=== PATIENT | female | born 1945 | race Two or more races ===

== ENCOUNTER 2019-02-17 12:39 | Outpatient (CLI) | payer BC ==
[2019-02-17] MEDS ORDERED: FENOFIBRATE43 MG ORAL (15:57)
[2019-02-17] MEDS ORDERED: ZETIA10 MG ORAL (15:57)
[2019-02-17] MEDS ORDERED: PROTONIX40 MG ORAL (15:57)
--- NOTE | 2019-02-17 16:15 | Consultation ---
DATE OF CONSULTATION: 02/17/2019 CONSULTING PHYSICIAN: Slava Kan M.D. REASON FOR CONSULTATION: Chronic GERD. HISTORY OF PRESENT ILLNESS: This is a pleasant 73-year-old female with past medical history of severe hiatal hernia requiring surgery in 2009 for three years and then started having symptoms again. She is on chronic Nexium, now switched to Protonix. She still having a lot of acid reflux to the point she is getting cough and had an evaluation by primary care physician for chronic cough, which was negative. So, she was concerned that she is having severe acid reflux causing her cough. PAST MEDICAL HISTORY: 1. Colonic AVM, causing bleeding, status post treatment. 2. Hemorrhoids. 3. Hypertriglyceridemia. 4. GERD. 5. Hiatal hernia, status post surgery. 6. Fatty liver. PAST SURGICAL HISTORY: Hernia repair, right knee surgery, hysterectomy, multiple breast lumpectomies. MEDICATIONS: Protonix, fenofibrate, and Zetia. FAMILY HISTORY: No family history of GI malignancies. SOCIAL HISTORY: The patient denies any tobacco, alcohol, or drug abuse. ALLERGIES: To penicillin. REVIEW OF SYSTEMS: A 10-point review of systems was performed and pertinent positives in HPI. PHYSICAL EXAMINATION: GENERAL: The patient is a well-developed female, in no acute distress. HEENT: Normocephalic and atraumatic. Sclerae anicteric. NECK: Supple. No evidence of lymphadenopathy. CARDIOVASCULAR: Regular rate and rhythm. Plus S1 and S2. No obvious murmur. LUNGS: Decreased breath sounds bilaterally based on the supine. ABDOMEN: Soft. Minimal tenderness to palpation in the epigastric area. No rebound. No guarding. No peritoneal sign. EXTREMITIES: No cyanosis. No clubbing. No edema. ASSESSMENT AND PLAN: This is a 73-year-old female with severe chronic GERD, status post hernia repair in 2009. Plan to increase the Protonix twice a day, add baclofen 10 mg at bedtime. The patient is scheduled to get an endoscopy this week. colonoscopy according to the patient, she had three years ago. We do not have the report. The patient also to be very poor so we cannot determine when should be her next colonoscopy scheduled. Slava Lina Kan DR: DELORES JOB#: [id number] CC:
== END 2019-02-17 14:39 | disposition home or self-care (01) ==
LOC: PAN 12:39
DX: K21.9 Gastro-esophageal reflux disease without esophagitis (principal); Z79.899 Other long term (current) drug therapy; Z90.710 Acquired absence of both cervix and uterus

== ENCOUNTER 2019-02-19 07:34 | Day surgery (SDC) | payer BC ==
[2019-02-19] VITALS (9 sets, daily range): BP systolic 105–117; BP diastolic 56–61
[~2019-02-19] VITALS: Ht 157.5 cm; Wt 63.5 kg
[~2019-02-19 07:34] MED LIST: FENOFIBRATE43 MG ORAL; LR 1000ml 1,000 ML IVLG SCH; PROTONIX40 MG ORAL; ZETIA10 MG ORAL
[2019-02-19] MEDS ORDERED: LR 1000ml ONE (09:00)
[2019-02-19] MEDS ORDERED: Lidocaine 1% MPF 10mg/ml 5ml ONE (09:00)
[2019-02-19] MEDS ORDERED: Propofol 200mg/20ml IV ONE (09:00)
--- NOTE | 2019-02-19 09:03 | Pre-Procedure Note/Attestation ---
Pre-Procedure Note/Attestation Complete Prior to Procedure Planned Procedure: not applicable Procedure Narrative: egd Indications for Procedure Pre-Operative Diagnosis: GERD Attestation I attest that I discussed the nature of the procedure; its benefits; risks and complications; and alternatives (and the risks and benefits of such alternatives ), prior to the procedure, with the patient (or the patient's legal sales representative sales manager). I attest that, if there was a reasonable possibility of needing a blood transfusion, the patient (or the patient's legal sales representative sales manager) was given the [facility] standardized written summary, pursuant to the [place] Blood Safety Act ([place] Health and Safety Code # 1645, as amended). I attest that I re-evaluated the patient just prior to the surgery and that there has been no change in the patient's H&P, except as documented below: Slava Kan MD Feb 19, 2019 09:03
--- NOTE | 2019-02-19 09:04 | Short Stay Surgery H&P ---
History of Present Illness History of Present Illness Chief Complaint see recent consult note HPI Shena Molina is a 73 year old female who was admitted on for GERD Patient History Allergies: Coded Allergies: PENICILLINS (Verified Allergy, Severe, RASH , 02/19/19) LATEX (Verified Allergy, Intermediate, REDNESS, ITCHING , 02/19/19) Medication History Scheduled Ezetimibe (Zetia*), 10 MG ORAL BEDTIME, (Reported) Fenofibrate,Micronized (Fenofibrate), Unknown Dose ORAL DAILY, (Reported) Pantoprazole* (Protonix*), 40 MG ORAL DAILY, (Reported) Physical Exam Vital Signs Last Vital Signs Date Time Temp Pulse Resp B/P (MAP) Pulse Ox O2 Delivery O2 Flow Rate FiO2 02/19/19 08:21 Room Air 02/19/19 08:08 97.8 66 18 105/61 99 Plan Attestation Are the patient's medical conditions optimized for surgery? Slava Kan MD Feb 19, 2019 09:04
--- NOTE | 2019-02-19 09:10 | Anethesia Preoperative Eval ---
Anesthesia Pre-op PMH/ROS General Date of Evaluation: Feb 19, 2019 Time of Evaluation: 08:50 ASA Score: ASA 2 Mallampati Score Class I : Soft palate, uvula, fauces, pillars visible Class II: Soft palate, uvula, fauces visible Class III: Soft palate, base of uvula visible Class IV: Only hard plate visible Mallampati Classification: Class II Anesthesia History: none Family History: no anesthesia problems Allergies: Coded Allergies: PENICILLINS (Verified Allergy, Severe, RASH , 02/19/19) LATEX (Verified Allergy, Intermediate, REDNESS, ITCHING , 02/19/19) Medications: see eMAR Patient NPO?: Yes NPO Date: Feb 19, 2019 NPO Time: 00:00 Past Medical History Cardiovascular: Reports: other - Hypercholesterolemia; Denies: HTN, CAD, PA, valve dz, arrhythmia Pulmonary: Denies: asthma, COPD, JERMAINE, other Gastrointestinal/Genitourinary: Reports: GERD; Denies: CRI, ESRD, other Neurologic/Psychiatric: Denies: dementia, CVA, depression/anxiety, TIA, other Endocrine: Denies: DM, hypothyroidism, steroids, other HEENT: Denies: cataract (L), cataract (R), glaucoma, [place] (L), [place] (R), other Hematology/Immune: Reports: anemia; Denies: DVT, bleeding disorder, other Musculoskeletal/Integumentary: Reports: OA; Denies: RA, DJD, DDD, edema, other PMH Narrative: as noted above PSxH Narrative: tonsillectomy, septoplasty, gastric bypass, hernia repair; knee arthroscopy x2. breast lumpectomy, hysterectomy Anesthesia Pre-op Phys. Exam Physician Exam Last Vital Signs Date Time Temp Pulse Resp B/P (MAP) Pulse Ox O2 Delivery O2 Flow Rate FiO2 02/19/19 08:21 Room Air 02/19/19 08:08 97.8 66 18 105/61 99 Constitutional: NAD Neurologic: other - alert & oriented Cardiovascular: RRR Respiratory: CTA Gastrointestinal: S/NT/ND Airway Exam Mallampati Score: Class II Neck: FROM TMD: > 3 FB ROM: full Teeth: intact Dentures: no upper, no lower Anesthesia Pre-op A/P Studies Pre-op Studies: EKG - NSR Risk Assessment & Plan Assessment: ASA 2, ok to proceed Plan: MAC Status Change Before Surgery: No Pre-Antibiotics Given Within 1 Hr of Incision: No Hayley Boyle CRNA Feb 19, 2019 09:10
--- NOTE | 2019-02-19 09:11 | Endoscopy Procedure Note ---
Endoscopy Procedure Note General Indication for Procedure: gerd Procedures Performed: EGD Operative Findings/Diagnosis: gastritis Specimen: yes Pt Tolerated Procedure Well: Yes Estimated Blood Loss: none Anesthesia Anesthesiologist: chayo Anesthesia: MAC Inserted Devices Implant(s) used?: No GI Core Measures 50 yrs or older w/o bx or poly: Not Applicable 10yrs. F/U recommended: Not Applicable Slava Kan MD Feb 19, 2019 09:11
--- NOTE | 2019-02-19 09:13 | Immediate Post-Op Evaluation ---
Immediate Post-Op Evalulation Immediate Post-Op Evalulation Procedure: EGD with biopsy Date of Evaluation: Feb 19, 2019 Time of Evaluation: 09:22 IV Fluids: LR 200 ml Blood Pressure Systolic: 111 Blood Pressure Diastolic: 61 Pulse Rate: 72 Respiratory Rate: 20 O2 Sat by Pulse Oximetry: 100 Temperature (Fahrenheit): 97.2 Pain Score (1-10): 0 Nausea: No Vomiting: No Complications none Patient Status: reacts, patent Hydration Status: adequate Given Within 1 Hr of Incision: Hayley Mustafa CRNA Feb 19, 2019 09:13
--- NOTE | 2019-02-19 11:15 | Procedure Note ---
DATE OF PROCEDURE: 02/19/2019 SURGEON: Slava Kan M.D. PROCEDURE: Upper endoscopy with biopsy. ANESTHESIA: Per Hayley HICKMAN. INSTRUMENT: Olympus adult flexible upper endoscope. INDICATION: Chronic GERD. REASON FOR PROCEDURE: The procedure, risks, benefits, and possible consequences, including hemorrhage, aspiration, perforation and infection, and alternative treatments, were explained to the patient/legal guardian by Dr. Slava Kan and the patient/legal guardian understood and accepted these risks. PROCEDURE IN DETAIL: After informed consent was obtained and the patient was adequately sedated, Olympus upper endoscope was advanced from mouth into the esophagus. GE junction was found to be about 30 cm from the incisors. The patient has a history of gastric bypass. The gastric pouch measured about 5 cm from 30 to 35 cm. When we reached the anastomosis, we entered one of the limbs of the small intestine. There is no acute finding. There is no anastomotic ulceration. There is no bleeding. There is minimum gastritis from the gastric pouch which was biopsied. The patient tolerated the procedure very well without complication. SUMMARY OF FINDINGS: 1. 5 centimeter gastric pouch. History of gastric bypass surgery. 2. No anastomotic ulceration. 3. Gastritis, status biopsy. RECOMMENDATIONS: Follow up biopsy results and treat accordingly. Slava Kan M.D. DR: SUNIL JOB#: [id number] CC:
--- NOTE | 2019-02-19 12:07 | 48 Hour Post Anesthesia Eval ---
Post Anesthesia Evaluation Procedure: EGD with biopsy Date of Evaluation: Feb 19, 2019 Time of Evaluation: 12:06 Blood Pressure Systolic: 114 0: 56 Pulse Rate: 61 Respiratory Rate: 12 Temperature (Fahrenheit): 97.4 O2 Sat by Pulse Oximetry: 100 Airway: patent Nausea: No Vomiting: No Pain Intensity: 0 Hydration Status: adequate Cardiopulmonary Status: stable Mental Status/LOC: patient returned to baseline Follow-up Care/Observations: per GI Post-Anesthesia Complications: none Follow-up care needed: N/A Hayley Boyle CRNA Feb 19, 2019 12:07
== END 2019-02-19 10:35 | disposition home or self-care (01) ==
LOC: GAS 07:34
DX: K21.9 Gastro-esophageal reflux disease without esophagitis (principal); Z98.84 Bariatric surgery status; Z88.0 Allergy status to penicillin; Z91.040 Latex allergy status; Z79.899 Other long term (current) drug therapy; E78.00 Pure hypercholesterolemia, unspecified; M19.90 Unspecified osteoarthritis, unspecified site; K29.50 Unspecified chronic gastritis without bleeding
CPT/HCPCS: 43239; 93005; J2704; 94003; 94150

== ENCOUNTER → 2019-03-16 | Outpatient (CLI) | payer BC ==
[~2019-03-16] MED LIST changes: +BACLOFEN10 MG ORAL; -LR 1000ml 1,000 ML IVLG SCH
--- NOTE | 2019-03-16 11:47 | General Progress Note ---
Assessment/Plan Assessment/Plan: 1. Colonic AVM, causing bleeding, status post treatment. 2. Hemorrhoids. 3. Hypertriglyceridemia. 4. GERD. 5. Hiatal hernia, status post surgery. 6. Fatty liver. EGD reviewed with the patient off ppi due to rash off baclofen due to dizziness patient was told to fu with pmd for surg referral Subjective ROS Limited/Unobtainable: Yes Allergies: Coded Allergies: PENICILLINS (Verified Allergy, Severe, RASH , 02/19/19) LATEX (Verified Allergy, Intermediate, REDNESS, ITCHING , 02/19/19) Objective General Appearance: alert EENT: normal ENT inspection Neck: supple Cardiovascular: normal rate Respiratory/Chest: lungs clear Abdomen: normal bowel sounds, non tender, soft Extremities: non-tender Slava Kan MD Mar 16, 2019 11:47
[2019-03-16 13:32] VITALS: BP 125/78
== END | disposition home or self-care (01) ==
LOC: PAN 09:30
DX: K55.21 Angiodysplasia of colon with hemorrhage (principal); K64.9 Unspecified hemorrhoids; E78.1 Pure hyperglyceridemia; K21.9 Gastro-esophageal reflux disease without esophagitis; K44.9 Diaphragmatic hernia without obstruction or gangrene; K76.0 Fatty (change of) liver, not elsewhere classified; Z88.0 Allergy status to penicillin; Z91.040 Latex allergy status
CPT/HCPCS: 99212

== ENCOUNTER 2019-04-19 14:30 | Outpatient (CLI) | payer BC ==
--- NOTE | 2019-04-19 15:17 | General Progress Note ---
Assessment/Plan Assessment/Plan: Assessment/Plan Assessment/Plan: 1. Colonic AVM, causing bleeding, status post treatment. 2. Hemorrhoids. 3. Hypertriglyceridemia. 4. GERD. 5. Hiatal hernia, status post surgery. 6. Fatty liver. EGD reviewed with the patient recent [facility] admission reviewed needs MRCP and if positive will refer to [facility] for ERCP given gastric bypass Subjective Allergies: Coded Allergies: PENICILLINS (Verified Allergy, Severe, RASH , 02/19/19) LATEX (Verified Allergy, Intermediate, REDNESS, ITCHING , 02/19/19) Objective General Appearance: alert EENT: PERRL/EOMI Neck: supple Cardiovascular: normal rate Respiratory/Chest: lungs clear Abdomen: normal bowel sounds, non tender, soft Extremities: non-tender Slava Kan MD Apr 19, 2019 15:17
[2019-04-19 15:58] VITALS: BP 124/64
== END 2019-04-19 16:30 | disposition home or self-care (01) ==
LOC: PAN 14:30
DX: K64.9 Unspecified hemorrhoids (principal); E78.1 Pure hyperglyceridemia; K21.9 Gastro-esophageal reflux disease without esophagitis; K44.9 Diaphragmatic hernia without obstruction or gangrene; K76.0 Fatty (change of) liver, not elsewhere classified; Z88.0 Allergy status to penicillin; Z91.040 Latex allergy status

== ENCOUNTER → 2019-05-14 | Outpatient (CLI) | payer BC ==
--- NOTE | 2019-05-14 15:57 | Diagnostic Imaging Report ---
Indication: Abdominal pain Technique: Coronal and axial single shot fast spin-echo breath-hold, axial T2 FRFSE, 2-D thick slab MRCP, AXIAL 2-D FIESTA fat saturated, axial 3-D dual echo breath-hold, water weighted axial LAVA FLEX, revealed 3-D MRCP images were obtained of the abdomen. MIP reconstructions were generated of the bile ducts Comparison: none Findings: There is some image degradation due to motion artifact. Gallbladder contains small filling defects consistent with gallstones. No gallbladder wall thickening or pericholecystic fluid. The motion artifact precludes accurate. Assessment of the bile ducts. On the coronal sequences, there is suggestion of filling defects within the downstream common bile duct has well as on the axial T2 sequences. However, the axial FIESTA sequences demonstrate the least motion and best depict the common bile duct and do not demonstrate any calculi. No definite biliary ductal dilatation is evident. The liver, pancreas, spleen, adrenals are all unremarkable. Cysts are seen in the kidneys bilaterally. Impression: Limited exam, as described Cholelithiasis Doubt but cannot completely exclude choledocholithiasis. No evidence of biliary ductal dilatation. Incidental finding of bilateral renal cysts
== END | disposition home or self-care (01) ==
LOC: MRI 09:08
DX: R10.9 Unspecified abdominal pain (principal); K80.20 Calculus of gallbladder without cholecystitis without obstruction; N28.1 Cyst of kidney, acquired
CPT/HCPCS: 74181